=== PATIENT | male | born 1965 | race Caucasian/White ===

== ENCOUNTER 2020-12-06 15:45 | Inpatient (IN) | payer OTHER ==
[~2020-12-06] VITALS: Ht 170.2 cm; Wt 88.0 kg
--- NOTE | 2020-12-06 15:53 | NUR ---
pt bib remsa. pt c/o dizziness and n/v. started last night. pt bp uncontrolled. pt c/o feelings of drifting to the right. pt pn mpnitor, ecg and pulse ox. ekg completed. iv in place. pt non compliant with metoprolol rx
--- NOTE | 2020-12-06 16:10 | NUR ---
MD AWARE OF PTS BP
[2020-12-06] MEDS ORDERED: ONDANSETRON 2MG/ML, 2ML ONE (17:25)
--- NOTE | 2020-12-06 17:47 | NUR ---
PT AWARE OF NEEDED UA
[2020-12-06] MEDS ORDERED: ONDANSETRON 2MG/ML, 2ML IVPush ONE (18:00)
[2020-12-06 18:05] LABS: BASOPHILS % (AUTO) 0 % (0-1); EOSINOPHILS % (AUTO) 0 % (1-7); LYMPHOCYTES % (AUTO) 10 % (22-44); MEAN CORPUSCULAR HEMOGLOBIN 31.5 pg (27.5-34.5); MEAN CORPUSCULAR HGB CONC 35.4 g/dL (33.2-36.2); MEAN PLATELET VOLUME 7.8 fL (7.4-10.4); MONOCYTES % (AUTO) 4 % (2-9); NEUTROPHILS % (AUTO) 86 % (42-75); PLATELET COUNT 354 x10^3/uL (130-400); RED BLOOD COUNT 5.51 x10^6/uL (4.38-5.82); RED CELL DISTRIBUTION WIDTH 14.3 % (9.4-14.8)
[2020-12-06 18:14] LABS: ALANINE AMINOTRANSFERASE 23 U/L (12-78); ALBUMIN 3.3 g/dL (3.4-5.0); ANION GAP 4 mmol/L (5-15); CALCIUM 9.7 mg/dL (8.5-10.1); CHLORIDE 99 mmol/L (98-107); CREATININE 0.91 mg/dL (0.7-1.3)
[2020-12-06 18:18] LABS: ALKALINE PHOSPHATASE 86 U/L (45-117); BILIRUBIN,TOTAL 0.5 mg/dL (0.2-1.0); TOTAL PROTEIN 9.4 g/dL (6.4-8.2)
[2020-12-06 18:23] LABS: TROPONIN I 0.126 ng/mL (0.000-0.045)
[2020-12-06] MEDS ORDERED: SODIUM CHLORIDE FLUSH 10ML SYR IVF ONE (18:30)
[2020-12-06] MEDS ORDERED: NITROGLYCERIN OINT 2%, 1GM TP ONE ×2 (18:36→19:00)
[2020-12-06] MEDS ORDERED: METOPROLOL TARTRATE 50 MG TAB ONE (18:36)
[2020-12-06] MEDS ORDERED: METOPROLOL TARTRATE 50 MG TAB PO ONE (19:00)
--- NOTE | 2020-12-06 19:11 | NUR ---
PT SLEEPING IN [facility], AND ON CR MONITOR. AT THIS TIME, ROUTE DELIVERY CLERK TAKING THE PT TO CT SCAN. PT A&OX4.
--- NOTE | 2020-12-06 19:25 | NUR ---
PT BACK FROM CT SCAN AT THIS TIME. NO ACUTE DISTRESS AT THIS TIME, PT REMAINS ON CR MONITOR.
[2020-12-06] MEDS ORDERED: hydrALAzine 20 MG/ML, 1ML ONE (19:59)
[2020-12-06] MEDS ORDERED: hydrALAzine 20 MG/ML, 1ML IV ONE (20:00)
--- NOTE | 2020-12-06 20:03 | NUR ---
PTS NIBP REMAINS HIGH. MD MADE AWARE AND MEDS ORDERED TO BRING DOWN PTS BP. CXRY ORDERED. PT A&OX4. AND PIV TO RIGHT AC INTACT AND FLUSHES EASILY. MEDICATION ADMINISTERED.
--- NOTE | 2020-12-06 20:20 | NUR ---
ADMITTING MD TO BEDSIDE TO [facility] LEWIS.
[2020-12-06] MEDS ORDERED: ONDANSETRON 2MG/ML, 2ML IVPush PRN (21:00)
[2020-12-06] MEDS ORDERED: DEXTROSE 50%, 50ML SYRINGE IVPush PRN (21:00)
[2020-12-06] MEDS ORDERED: ACETAMINOPHEN 650 MG/20.3 ML UDC PO PRN (21:00)
[2020-12-06] MEDS ORDERED: GLUCAGON 1 MG IM PRN (21:00)
[2020-12-06] MEDS: ATORVASTATIN 80 MG TABLET PO SCH (21:00)
[2020-12-06] MEDS: ENOXAPARIN 40 MG/0.4 ML SQ SCH (21:00)
[2020-12-06] MEDS ORDERED: OXYcodone 5 MG/5 ML ORAL.SOL UDC PO PRN (21:00)
[2020-12-06] MEDS ORDERED: POLYETHYLENE GLYCOL 17 GM PACKET PO PRN (21:00)
[2020-12-06] MEDS ORDERED: GUAIFENESIN/DM 200-20MG, 10ML UDC PO PRN (21:00)
[2020-12-06] MEDS ORDERED: LABETALOL 5MG/ML, 20ML IV PRN (21:00)
[2020-12-06] MEDS: INSULIN LISPRO 100 UNITS/ML, PEN SQ-INSULIN SCH (21:00)
[2020-12-06] MEDS ORDERED: PROMETHAZINE 25 MG/ML, 1ML IM PRN (21:00)
[2020-12-06] MEDS ORDERED: DEXTROSE 4 GM TAB.CHEW PO PRN (21:00)
[2020-12-06 21:30] LABS: TROPONIN I 0.138 ng/mL (0.000-0.045)
--- NOTE | 2020-12-06 21:37 | NUR ---
Anrde jensen in ED - 12/06/20 at 2138 by SASCHA TROPONIN LEVEL PROVIDED TO THE MD AND JUAN V/U. TROPONIN IS 0.138 AND HAS COME DOWN FROM EARLIER.
--- NOTE | 2020-12-06 21:38 | NUR ---
TROPONIN LEVEL PROVIDED TO THE MD, AND HE V/U. TROPONIN IS 0.138 AND HAS GONE UP FROM EARLIER.
--- NOTE | 2020-12-06 23:07 | NUR ---
NO CHANGE IN STATUS. PT RESTING COMFORTABLY ON GURNEY, SIDERAILS UP X2 AND CALL LIGHT WITHIN REACH. PT IN POSITION OF COMFORT, AND LIGHTS TURNED DOWN FOR COMFORT, AND PT ON CR MONITOR AND BP REMAINS WNL.
--- NOTE | 2020-12-07 00:25 | NUR ---
MRI PAPERWORK FILLED OUT AND GIVEN TO XRAY STAFF, AND THEY WILL GET IT TO THE MRI STAFF TO REVIEW. THE FORM THAT IS FILLED OUT FOR THE MRI IS A NEW FORM AND NO LONGER HAS THE FAX NUMBER ON IT TO FAX THE FORMS TO MRI DIRECTLY. BALLOON PILOT AWARE.
--- NOTE | 2020-12-07 01:01 | NUR ---
BREAK RN: HOSPITAL BED ORDRED. PT RESTING IN ROOM. VS STABLE. ENGLISH LANGUAGE LEARNER TEACHER ON. CALL LIGHT IN PLACE. WILL CONTINUE TO MONITOR.
--- NOTE | 2020-12-07 01:50 | NUR ---
PT TAKEN TO MRI VIA RREANNA.
--- NOTE | 2020-12-07 02:30 | NUR ---
PT BACK FROM MRI, AND GURNEY REPLACED WITH HOSPITAL BED, AND PT MOVED TO IT, AND IS MORE COMFORTABLE, REMAINS ON CR MONITOR, AND RESTING COMFORTABLY.
[2020-12-07 03:27] LABS: TROPONIN I 0.108 ng/mL (0.000-0.045)
--- NOTE | 2020-12-07 03:50 | NUR ---
PT RESTING COMFORTABLY, NO CHANGES, AND NO COMPLAINTS. PT IN HOSPITAL BED, AND ON CR MONITOR.
--- NOTE | 2020-12-07 04:54 | NUR ---
PT RESTING COMFORTABLY IN BED, SIDERAILS UP X2, AND CALL LIGHT WITHIN REACH.
--- NOTE | 2020-12-07 05:56 | NUR ---
NO CHANGE IN STATUS. PT RESTING COMFORTABLY, REMAINS ON CR MONITOR.
--- NOTE | 2020-12-07 06:53 | NUR ---
REPORT AND CARE TO ADRIANA OQUENDO.
--- NOTE | 2020-12-07 06:56 | NUR ---
ASSUMING CARE AFTER BEDSIDE REPORT FROM CIARA RN. PT RESTING IN BED. VSS. ROWE.
[2020-12-07] MEDS: INSULIN LISPRO 100 UNITS/ML, PEN SQ-INSULIN SCH ×4 (07:00→20:19)
[2020-12-07] MEDS ORDERED: OMNIPAQUE 350 MG/ML, 100ML BOTTLE ONE (07:15)
--- NOTE | 2020-12-07 07:22 | NUR ---
YELLOW MED REQ SLIP SENT TO PHARMACY FOR HUMALOG PEN.
--- NOTE | 2020-12-07 07:25 | NUR ---
PT BACK FROM CT.
[2020-12-07] MEDS ORDERED: ASPIRIN 81 MG TABLET CHEW ONE (07:27)
[2020-12-07] MEDS ORDERED: ENOXAPARIN 40 MG/0.4 ML ONE (07:27)
[2020-12-07] MEDS: ASPIRIN 81 MG TABLET CHEW PO/NG SCH (07:35)
[2020-12-07] MEDS: ENOXAPARIN 40 MG/0.4 ML SQ SCH (07:36)
--- NOTE | 2020-12-07 07:43 | NUR ---
PT MEDICATED PER EMAR. VSS.
--- NOTE | 2020-12-07 08:08 | NUR ---
SPOKE WITH DR. ENG REGARDING LACK OF APPRPORIATE ANTIHYPERTENSIVES FOR PT. 10MG HYDRALIZINE PRN IV Q4H FOR SBP >160 ORDRED FOR PT.
[2020-12-07] MEDS: SODIUM CHLORIDE FLUSH 10ML SYR IVF SCH ×3 (09:00→20:15)
[2020-12-07 09:13] LABS: ALANINE AMINOTRANSFERASE 23 U/L (12-78); ANION GAP 5 mmol/L (5-15); CHLORIDE 99 mmol/L (98-107); CREATININE 1.13 mg/dL (0.7-1.3)
[2020-12-07 09:15] LABS: BASOPHILS % (AUTO) 0 % (0-1); EOSINOPHILS % (AUTO) 0 % (1-7); LYMPHOCYTES % (AUTO) 13 % (22-44); MEAN CORPUSCULAR HGB CONC 34.7 g/dL (33.2-36.2); MEAN PLATELET VOLUME 8.4 fL (7.4-10.4); MONOCYTES % (AUTO) 5 % (2-9); NEUTROPHILS % (AUTO) 82 % (42-75); PLATELET COUNT 379 x10^3/uL (130-400); RED BLOOD COUNT 5.38 x10^6/uL (4.38-5.82); RED CELL DISTRIBUTION WIDTH 14.4 % (9.4-14.8)
[2020-12-07 09:18] LABS: ALKALINE PHOSPHATASE 74 U/L (45-117); BILIRUBIN,TOTAL 0.5 mg/dL (0.2-1.0); CHOL/HDL RATIO 4.2; LDL/HDL RATIO 2.4 (0.5-3.0); TOTAL PROTEIN 8.3 g/dL (6.4-8.2); TROPONIN I 0.111 ng/mL (0.000-0.045)
--- NOTE | 2020-12-07 09:28 | NUR ---
DR. ENG AT BEDSIDE FOR EVALUATION.
[2020-12-07] MEDS ORDERED: hydrALAzine 20 MG/ML, 1ML IV PRN (10:00)
[2020-12-07 10:39] VITALS: BP 165/81
[2020-12-07 16:46] VITALS: BP 138/66
[2020-12-07 17:06] LABS: MICROSCOPIC AUTO
[2020-12-07] MEDS: ATORVASTATIN 80 MG TABLET PO SCH (20:18)
[2020-12-07 20:22] VITALS: BP 162/48
[2020-12-07 23:59] VITALS: BP 172/97
[2020-12-08 03:32] VITALS: BP 166/88
[2020-12-08 06:00] LABS: BASOPHILS % (AUTO) 1 % (0-1); EOSINOPHILS % (AUTO) 0 % (1-7); LYMPHOCYTES % (AUTO) 20 % (22-44); MEAN CORPUSCULAR HEMOGLOBIN 30.7 pg (27.5-34.5); MEAN CORPUSCULAR HGB CONC 34.4 g/dL (33.2-36.2); MEAN PLATELET VOLUME 8.2 fL (7.4-10.4); MONOCYTES % (AUTO) 7 % (2-9); NEUTROPHILS % (AUTO) 73 % (42-75); PLATELET COUNT 287 x10^3/uL (130-400); RED BLOOD COUNT 5.33 x10^6/uL (4.38-5.82); RED CELL DISTRIBUTION WIDTH 14.2 % (9.4-14.8)
[2020-12-08 06:17] LABS: CHLORIDE 99 mmol/L (98-107)
[2020-12-08 06:29] LABS: ANION GAP 7 mmol/L (5-15); CALCIUM 8.7 mg/dL (8.5-10.1); CREATININE 0.93 mg/dL (0.7-1.3)
[2020-12-08] MEDS: INSULIN LISPRO 100 UNITS/ML, PEN SQ-INSULIN SCH ×4 (07:00→19:46)
[2020-12-08 07:32] VITALS: BP 183/98
[2020-12-08] MEDS: ASPIRIN 81 MG TABLET CHEW PO/NG SCH (08:37)
[2020-12-08] MEDS: LISINOPRIL 20 MG TABLET PO SCH (08:37)
[2020-12-08] MEDS: ENOXAPARIN 40 MG/0.4 ML SQ SCH (08:38)
[2020-12-08] MEDS: SODIUM CHLORIDE FLUSH 10ML SYR IVF SCH ×2 (08:38→19:06)
[2020-12-08 13:30] VITALS: BP 159/84
[2020-12-08 18:00] VITALS: BP 162/86
[2020-12-08] MEDS: ATORVASTATIN 80 MG TABLET PO SCH (19:46)
[2020-12-08 20:01] VITALS: BP_SYST 16; BP_SYST 168; BP_DIAS 87
[2020-12-09 00:20] VITALS: BP 163/75
[2020-12-09 04:39] VITALS: BP 149/83
[2020-12-09 06:45] LABS: BASOPHILS % (AUTO) 1 % (0-1); EOSINOPHILS % (AUTO) 1 % (1-7); LYMPHOCYTES % (AUTO) 28 % (22-44); MEAN CORPUSCULAR HEMOGLOBIN 30.8 pg (27.5-34.5); MEAN CORPUSCULAR HGB CONC 34.4 g/dL (33.2-36.2); MEAN PLATELET VOLUME 8.4 fL (7.4-10.4); MONOCYTES % (AUTO) 7 % (2-9); NEUTROPHILS % (AUTO) 64 % (42-75); PLATELET COUNT 293 x10^3/uL (130-400); RED BLOOD COUNT 5.34 x10^6/uL (4.38-5.82); RED CELL DISTRIBUTION WIDTH 14.3 % (9.4-14.8)
[2020-12-09] MEDS ORDERED: metFORMIN 500 MG TABLET PO SCH (08:00)
[2020-12-09 08:05] VITALS: BP 161/98
[2020-12-09] MEDS: ENOXAPARIN 40 MG/0.4 ML SQ SCH (08:36)
[2020-12-09] MEDS: ASPIRIN 81 MG TABLET CHEW PO/NG SCH (08:36)
[2020-12-09] MEDS: LISINOPRIL 20 MG TABLET PO SCH (08:36)
[2020-12-09] MEDS: INSULIN LISPRO 100 UNITS/ML, PEN SQ-INSULIN SCH ×2 (08:41→11:00)
[2020-12-09] MEDS ORDERED: ATOR-2 PO (08:57)
[2020-12-09] MEDS ORDERED: LISI40TA9 PO (08:57)
[2020-12-09] MEDS ORDERED: METF500T17 PO (08:57)
[2020-12-09] MEDS ORDERED: ASPI-963 PO/NG (08:57)
[2020-12-09] MEDS: SODIUM CHLORIDE FLUSH 10ML SYR IVF SCH (09:00)
== END 2020-12-09 11:05 | disposition home or self-care (01) | DRG 64 ==
LOC: ED 16:00 → EDIP 19:36 → 5SO 12-07 10:08
PROVIDERS: ADMIT Internal Medicine; ATTEND Hospitalist
DX: I63.9 Cerebral infarction, unspecified (principal); I21.A1 Myocardial infarction type 2; C90.00 Multiple myeloma not having achieved remission; E87.1 Hypo-osmolality and hyponatremia; Z20.822 Contact with and (suspected) exposure to COVID-19; H47.10 Unspecified papilledema; I50.32 Chronic diastolic (congestive) heart failure; I16.1 Hypertensive emergency; E11.65 Type 2 diabetes mellitus with hyperglycemia; F17.200 Nicotine dependence, unspecified, uncomplicated; F19.10 Other psychoactive substance abuse, uncomplicated; H40.9 Unspecified glaucoma; H54.62 Unqualified visual loss, left eye, normal vision right eye; I11.0 Hypertensive heart disease with heart failure; I16.0 Hypertensive urgency; R29.6 Repeated falls; Z79.82 Long term (current) use of aspirin; Z79.899 Other long term (current) drug therapy; Z86.73 Personal history of transient ischemic attack (TIA), and cerebral infarction without residual deficits; Z91.19 Patient's noncompliance with other medical treatment and regimen; Z79.84 Long term (current) use of oral hypoglycemic drugs
CPT/HCPCS: 36415; 70450; 70496; 70551; 71045; 80048; 80053; 80061; 81001; 82962; 83036; 83735; 84100; 84155; 84165; 84484; 85025; 85651; 87086; 93005; 93306; 93356; 93880; 96374; 99285; G0378; J1650; J2405; Q9967; 92523-GN; J0360